=== PATIENT | female | born 2000 | race Caucasian/White ===

== ENCOUNTER 2018-01-02 22:15 | Emergency (ER) | payer OTHER ==
[~2018-01-02] VITALS: Ht 170.2 cm; Wt 60.9 kg
[2018-01-03] MEDS ORDERED: HYDROGEN PEROXIDE 118 ML SOLUTION TP ONE (00:15)
[2018-01-03] MEDS ORDERED: CEPHALEXIN MONOHYDRATE 500 MG CAPSULE PO ONE (00:15)
[2018-01-03 01:17] VITALS: BP 130/68
== END 2018-01-03 01:22 | disposition home or self-care (01) ==
LOC: EMS 22:16
DX: L03.313 Cellulitis of chest wall (principal); F17.210 Nicotine dependence, cigarettes, uncomplicated
CPT/HCPCS: 99283; 99406